=== PATIENT | male | born 1975 | race Caucasian/White ===

== ENCOUNTER 2016-12-06 21:22 | Emergency (ER) | payer OTHER ==
[~2016-12-06] VITALS: Ht 182.9 cm; Wt 83.5 kg
[2016-12-06] MEDS ORDERED: CITA20TA4 PO (21:40)
[2016-12-06] MEDS ORDERED: ALPR1TAB6 PO (21:46)
[2016-12-06 23:37] VITALS: BP 113/75
== END 2016-12-06 23:40 | disposition home or self-care (01) ==
LOC: M ED 22:21
DX: F10.10 Alcohol abuse, uncomplicated (principal)